=== PATIENT | female | born 1950 | race Two or more races ===

== ENCOUNTER 2021-06-03 15:24 | Emergency (ER) | payer MEDICAID ==
[~2021-06-03] VITALS: Ht 162.6 cm; Wt 66.0 kg
--- NOTE | 2021-06-03 15:43 | NUR ---
ASSUMED CARE OF PATIENT. PT CECILIA ATKINSON FROM THE PARK. PT C/O RIGHT FOOT. PAIN. VS STABLE. NO ACUTE DISTRESS NOTED. WILL CONTINUE TO MONITOR.
--- NOTE | 2021-06-03 15:43 | NUR ---
DR CUNHA IN ROOM
[2021-06-03] MEDS ORDERED: DIPH,PERTUSS(ACELL),TET VAC/PF 0.5 ML IM-VACC ONE ×2 (16:00→16:18)
[2021-06-03 16:23] VITALS: BP 141/85
[2021-06-03] MEDS ORDERED: NEOSPORIN OINT. PKT 1 PACKET ONE (16:54)
--- NOTE | 2021-06-03 17:00 | NUR ---
WENT OVER WOUND CARE WITH PATIENT. PATIENT GIVEN WOUND CARE SUPPLIES. PT GIVEN FOOD AND SODAS FOR DC. PT IS A&O X4. PT CAN SAFELY WALK AROUND ROOM AND GARCIA. PT GIVEN A BUS PASS. MEDICATION EDUCATION DONE. PT GIVEN MEDICATION ASSISTANCE INFORMATION. PT VERBALIZES ALL DISCHARGE INSTURCTIONS. VS STABLE. PT READY FOR DC.
== END 2021-06-03 17:04 | disposition home or self-care (01) ==
LOC: ED 15:54
DX: S91.331A Puncture wound without foreign body, right foot, initial encounter (principal); X58.XXXA Exposure to other specified factors, initial encounter; Y93.89 Activity, other specified; Y92.89 Other specified places as the place of occurrence of the external cause; Y99.8 Other external cause status
CPT/HCPCS: 90471; 90715